=== PATIENT | female | born 1940 | race Hispanic/Latino ===

== ENCOUNTER 2017-08-19 11:12 | Emergency (ER) | payer OTHER ==
[~2017-08-19] VITALS: Ht 157.5 cm; Wt 63.7 kg
[~2017-08-19 11:12] MED LIST: AMLODIPINE BES2.5 MG PO; ASCORBIC ACID500 M3 PO; BAYER CHEWABLE81 MG PO; CALCIUM 600 MG1 EACH PO; CARVEDILOL12.5 MG PO; COREG CR40 MG PO; COUMADIN2 MG PO; DICYCLOMINE HCL10 MG PO; EVISTA60 MG PO; FOLIC ACID1 MG PO; IRON325 M1 PO; METHOCARBAMOL500 MG PO; MICARDIS HCT1 TABLE1 PO; OXYCODONE HCL5 MG PO; POLYETHYLENE GL17 GM PO; RANITIDINE HCL300 MG PO; THERAGRAN1 TABLET PO; TRICOR145 MG PO; VITAMIN E400 UNIT PO; ZANTAC150 MG PO
[2017-08-19 11:39] LABS: HEMATOCRIT 36.8 % (36.0-46.0); HEMOGLOBIN 12.4 G/DL (11.9-15.5); MCH 30.9 PG (29.0-34.0); MCHC 33.7 G/DL (30.0-36.0); MCV 91.8 FL (83-99); PLATELET COUNT 200 K/uL (156-360); RBC DIS.WIDTH-CV 13.2 % (11.8-14.6); RBC DIS.WIDTH-SD 44.9 % (39-53); RED BLOOD COUNT 4.01 M/uL (3.80-5.20); WHITE BLOOD COUNT 6.1 K/uL (4.1-10.2)
[2017-08-19 11:48] LABS: CHLORIDE 105 mEq/L (99-109); POTASSIUM 4.2 mEq/L (3.7-5.4); SODIUM 142 mEq/L (136-147)
[2017-08-19 11:50] LABS: GLUCOSE 146 mg/dL (70-99)
[2017-08-19 11:54] LABS: GFR ESTIMATE (CALCULATED) 57 mL/min/
[2017-08-19 11:55] LABS: UREA NITROGEN (BUN) 22 mg/dL (9-23)
[2017-08-19 12:00] LABS: TROP-I INTERPRETATION NEGATIVE; TROPONIN-I 0.01 ng/mL (0.0-0.30)
[2017-08-19 13:02] LABS: APPEARANCE SL.HAZY ((CLEAR)); BILIRUBIN NEGATIVE; BLOOD NEGATIVE; COLOR YELLOW ((YELLOW)); GLUCOSE (STRIP) NEGATIVE; KETONES NEGATIVE; LEUKOCYTES NEGATIVE; NITRITE NEGATIVE; PROTEIN (STRIP) 30; SPECIFIC GRAVITY 1.018 (1.000-1.030); UROBILINOGEN 0.2 MG/DL (0.2-1.0)
[2017-08-19 13:13] LABS: BACTERIA RARE /HPF; EPITHELIAL CELLS 1+ /HPF; HYALINE CASTS TNTC /LPF; MUCUS TRACE /LPF; RED BLOOD CELLS 0-5 /HPF (0-5); UCUL ADDED? NO; WHITE BLOOD CELLS 0-5 /HPF (0-5)
[2017-08-19 15:53] VITALS: BP 159/78
== END 2017-08-19 16:12 | disposition home or self-care (01) ==
LOC: EME 11:12
PROVIDERS: Emergency Medicine
DX: R42 Dizziness and giddiness (principal); E78.5 Hyperlipidemia, unspecified; I10 Essential (primary) hypertension; K21.9 Gastro-esophageal reflux disease without esophagitis
CPT/HCPCS: 70450; 80048; 81003; 84484; 85027; 93005; 99281; 99285